=== PATIENT | male | born 1945 | race Caucasian/White ===

== ENCOUNTER → 2018-10-04 13:59 | Outpatient (CLI) | payer MEDICARE, BC | END | disposition home or self-care (01) | LOC: D.MRI 13:59 | PROVIDERS: ATTEND Orthopaedic Surgery | DX: M71.22 Synovial cyst of popliteal space [Baker], left knee (principal) ==

== ENCOUNTER 2018-12-14 06:36 | Day surgery (SDC) | payer MEDICARE, BC ==
[2018-12-13 15:16] LABS: HEMATOCRIT 37.5 % (42.0-54.0); MCH 33.5 pg (26.0-34.0); MCHC 34.7 g/dL (31.0-37.0); MCV 96.6 fL (80.0-100.0); RBC 3.88 10x6/uL (4.20-6.10); RDW 13.5 % (11.5-14.5); WBC 4.6 10x3/uL (4.8-10.8)
[~2018-12-14] VITALS: Ht 182.9 cm; Wt 86.2 kg
[~2018-12-14 06:36] MED LIST: FLUTICASONE PRO16 GM NASAL; HYTRIN5 MG PO; LISINOPRIL20 MG PO; SYMBICORT 16010.2 GM INH
[2018-12-14 07:47] VITALS: BP 141/91; Ht 182.9 cm; Wt 86.2 kg
[2018-12-14] MEDS ORDERED: HYDROCODON-ACE1 EA10 PO (10:42)
[2018-12-14] MEDS ORDERED: ZOFRAN ODT4 MG/UDTAB PO (10:43)
--- NOTE | 2018-12-14 12:03 | OP ---
PATIENT NAME: JANAY ARREGUIN MEDICAL RECORD: [id number] :45 LOCATION:[facility] ADMISSION DATE: SURGEON: YARIEL HARRIS DO DATE OF OPERATION: 12/14/2018 PROCEDURE PERFORMED: Left knee arthroscopy with partial medial and partial lateral meniscectomies. PREOPERATIVE DIAGNOSIS: Left knee medial meniscus tear. POSTOPERATIVE DIAGNOSES: Left knee medial meniscus tear with lateral meniscal tear as well. INDICATIONS: Mr. Arreguin is a 73-year-old male who presented to my office with catching, locking of the left knee. X-rays were taken. He did not seem to have much joint line narrowing or indications of osteoarthritis. Due to his symptoms, I told him we could try injections and if that did not help, we get an MRI and see if he truly did have a meniscal tear, which is what I suspected. That did happen, we tried injections, it did not help. We got an MRI and it did show medial meniscal tear in the posterior horn. I informed him that I would look at the cartilage and see how bad it was when I was in there and then trim out the meniscus and see if we can get him an improvement. He was okay with that and was aware of the risk including infection, bleeding, damage to nerves and vessels, need for further surgery, blood clots, and even and signed the consent. SURGEON: Yariel Harris DO DESCRIPTION OF PROCEDURE: The patient was taken to the operative suite, laid in supine position, given general anesthetic. LMA was placed, given 2 grams of Ancef preoperatively. Left lower extremity was prepped and draped in sterile fashion. Timeout was performed, everyone was in agreement as to the correct side, site, patient and procedure. Then the knee was flexed down, lateral portal was established with an 11-blade scalpel and a trocar was entered into the knee. The suprapatellar pouch was inspected and no loose bodies were seen in it. There was slight chondromalacia on the patella. Then, the lateral and medial gutters were inspected. No loose bodies were seen in it. The knee was then flexed down and the medial joint line was entered. The medial portal was established with an 18-gauge spinal needle and an 11-blade scalpel. Trocar was entered into the knee and the probe was entered the knee. The meniscal tear in the posterior horn of the medial meniscus was then seen. This was trimmed out with the biter and shaver back to a stable point. The ACL was then probed and the cartilage had been checked on the medial femoral condyle, there was possibly grade II at the posterior aspect of it, but not at the weightbearing aspect. The ACL probe was seen to be in good position and taut. The knee was then gybldt-ke-xptk'ed and the lateral meniscus seemed to have some tears in the innermost middle portion of the middle horn of the meniscus. This was trimmed out and shaved back to a stable point. Knee was then brought back into extension and the patella was checked. No loose bodies were seen in it and then tracked very well in the trochlea. The water was then turned off and suction turned on. Excess fluid was taken out of the knee. The knee sites were then closed with a 4-0 Monocryl in inverted interrupted fashion. Steri-Strips, Adaptic, 4 x 4's, ABD, Webril and Andrea wrap were then placed and a BRANDY hose stockinette up to the knee. He was awakened and taken to recovery in stable condition. OPERATIVE REPORT [id number] JANAY ARREGUIN BLOOD LOSS: Minimal. COMPLICATIONS: None. TRANSINT:[id number] Voice Confirmation ID: [id number] DOCUMENT ID: [id number] YARIEL HARRIS DO at 1203 CC: [id number] DICTATION DATE: 12/14/18 1040 SCREW EYE ASSEMBLER: 12/14/18 1059 [id number] [place] [address]
--- NOTE | 2018-12-14 13:10 | NUR ---
PATIENT AMBULATES TO BATHROOM AND VOIDS LARGE AMOUNT IN TOILET, DRESSING IN PERSONAL CLOTHING. DISCHARGE INSTRUCTIONS REVIEWED WITH PATIENT AND SPOUSE [id number] DISCHARGED HOME VIA WHEELCHAIR TO PRIVATE VEHICLE WITH SPOUSE
== END 2018-12-14 13:25 | disposition home or self-care (01) ==
LOC: D.OPS 06:36 → D.PAN 07:00 → D.OPS 08:45
PROVIDERS: Anesthesiology; ATTEND Orthopaedic Surgery
DX: S83.242A Other tear of medial meniscus, current injury, left knee, initial encounter (principal); S83.282A Other tear of lateral meniscus, current injury, left knee, initial encounter; Z01.812 Encounter for preprocedural laboratory examination